=== PATIENT | female | born 1980 | race Caucasian/White ===

== ENCOUNTER 2016-07-07 08:19 | Emergency (ER) | payer OTHER ==
[2016-07-07 08:31] VITALS: BP 125/74
--- NOTE | 2016-07-07 09:07 | UC ---
Lower Extremity/Ankle HPI - HPI Summary HPI Summary: right lateral foot pain since yesterday. no known trauma or twisting. no redness. no dm. - History of Current Complaint Chief Complaint: UCLowerExtremity Stated Complaint: RIGHT FOOT PAIN Time Seen by Provider: 07/07/16 09:00 Hx Obtained From: Patient Hx Last Menstrual Period: 06/28/16 Onset/Duration: Gradual Onset, Lasting Days Severity Initially: Mild Severity Currently: Moderate Aggravating Factor(s): Standing, Ambulation Alleviating Factor(s): Rest Able to Bear Weight: Yes - Risk Factors Gout Risk Factors: Negative DVT Risk Factors: Negative - Allergies/Home Medications Allergies/Adverse Reactions: Allergies Allergy/AdvReac Type Severity Reaction Status Date / Time Penicillins Allergy Intermediate Hives Verified 07/07/16 08:31 PMH/Surg Hx/FS Hx/Imm Hx Previously Healthy: Yes - Surgical History Surgical History: Yes Surgery Procedure, Year, and Place: x 1 - Family History Known Family History: Positive: Hypertension - Social History Alcohol Use: Occasionally Substance Use Type: None Smoking Status (MU): Never Smoked Tobacco Review of Systems All Other Systems Reviewed And Are Negative: Yes Physical Exam Triage Information Reviewed: Yes Appearance: Well-Appearing, Well-Nourished Vital Signs: Initial Vital Signs Temp 98.4 F 07/07/16 08:26 Pulse 58 07/07/16 08:26 Resp 16 07/07/16 08:26 BP 125/74 07/07/16 08:26 Pulse Ox 100 07/07/16 08:26 Vital Signs Reviewed: Yes Eye Exam: Normal ENT Exam: Normal Neck exam: Normal Respiratory Exam: Normal Cardiovascular Exam: Normal Abdominal Exam: Normal Musculoskeletal Exam: Other - right lateral foot tenderness with forced abduction of the ankle. there is point tenderness of the 5th metatarsal head. no ankel or heel tenderness. Psychological Exam: Normal Skin Exam: Normal Lower Extremity Course/Dx - Course Course Of Treatment: there is tenderness along the 5th metatarsal and the foot/ ankle abductor tendon. no suggestion or reason for rupture. there is calcification on x ray of this area which may or may not be clinically significant. she agrees to f/u with orthopedics and for supportive care. - Differential Dx/Diagnosis Differential Diagnosis/HQI/PQRI: Arthritis, Tendonitis, Tenosynovitis Provider Diagnoses: right foot pain Discharge - Discharge Plan Condition: Stable Disposition: HOME Patient Education Materials: Foot Sprain (ED), Arthralgia (ED) Referrals: Sun MAURER,Rita Cruz [Primary Care Provider] - Tani Fuentes MD [Medical Doctor] -
[2016-07-07] MEDS ORDERED: Ibuprofen TAB* 600 MG PO ONE (09:14)
--- NOTE | 2016-07-07 09:42 | RAD ---
INDICATION: Atraumatic fifth metatarsal pain. TECHNIQUE: 3 views of the right foot were obtained. FINDINGS: The bones are in normal alignment. No fracture is seen. Joint spaces appear maintained. IMPRESSION: NO EVIDENCE FOR FRACTURE.
== END 2016-07-07 09:38 | disposition home or self-care (01) ==
LOC: UCCORT 08:19
DX: M79.671 Pain in right foot (principal)
CPT/HCPCS: 99212; A9270-GY; G0463

== ENCOUNTER 2017-11-20 08:05 | Emergency (ER) | payer OTHER ==
--- OUTSIDE RECORDS SUMMARY | 2017-11-20 08:16 | XMS REPORT ---
:1980 External Reference #:[id number] Organization [facility] Address [address] [address] Phone [phone] Care Team Providers Name Role Phone Jareth Garsia MD Care Team Information Business Services Intern Unavailable Payers Type Date Identification Numbers Payment Provider Subscriber Commercial Policy Number: [id number] Lifetime Benefit SLNS Verito Leggett PayID: [id number] [address] [address] [place] [address] Medigap Part B Effective: 2003 Policy Number: [id number] Ebs [employer] Verito Leggett Expires: 2014 Group Number: [place] [address] PayID: [place] [address] Medigap Part B Expires: 2003 Policy Number: BCBS Commercial Violet Leggett [id number] Group Number: [id number] [address] [address] Group Name: [place] [phone] PayID: [id number] Problems Date Description Provider 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 Gastrointestine Onset: 08/16/2002 von Willebrand disorder Jareth Garsia MD Active Social History Type Date Description Comments Smoking Patient has never smoked Allergies, Adverse Reactions, Alerts Date Description Reaction Status Severity Comments 02/20/2001 NKDA active Medications Medication Date Status Form Strength Qnty SIG Indications Ordering Provider Lexapro 06/18/ Active Tablets 10mg 30tabs 1 PO qd Deisi Garsia MD OCP 09/29/ Active 0units Aleks Garsia MD Fluconazole 01/10/ Hx Tablets 150mg 1tabs one tab by Sun, 2018 - mouth times Jareth, 02/17/ one day 2018 Amoxicillin/Cla 02/08/ Hx Tablets 875-125mg 20tabs 1 by mouth J01.90 tayla Garsiaanate 2018 - twice a day Jareth, Potassium 02/18/ with food 2017 Ciprofloxacin 02/08/ Hx Solution 0.3% 2.500m one drop in H10.89 Carljuma, HCL 2018 - l each eye 4 Jareth, 02/18/ times a day 2017 Ciprofloxacin 02/22/ Hx Solution 0.3% 2.500m one drop in H10.9 Sun , HCL 2016 - l each eye 4 Jareth, 03/01/ times a day 2016 Trimethoprim 02/17/ Hx Solution 64652-9.1U 10ml one drop in H10.9 Sun Sulfate/Polymyx 2017 - nit/ML-% lt eye 3 Jareth in B Sulfate 02/27/ times a day 2016 Doxycycline 03/05/ Hx Capsules 100mg 20caps 1 by mouth 466.0 Sun Hyclate 2014 - twice a day Jareth, 03/15/ with food 2014 Benzonatate 03/05/ Hx Capsules 200mg 20caps 1 by mouth Sun 2014 - twice a day Jareth, 03/15/ as needed 2014 cough Naproxen 12/02/ Hx Tablets 500mg 30tabs 1 po bid 726.10 Sun 2010 - prn with Jareth, 12/17/ food 2010 Scopalamine 09/10/ Hx 2units apply 1 q 3 Nida Garsia 2010 - days behind Rita 09/11/ first ERASTO esteban 2010 one 1 hr before boarding ship Cipro 05/14/ Hx Tablets 250mg 10tabs 1 po bid 599.0 Sun 2010 - Rita 05/15/ 2010 Pyridium 05/14/ Hx Tablets 200mg 10tabs 1 tid prn 599.0 Sun 2010 - bladder Rita, 05/15/ pain 2010 Cipro 07/08/ Hx Tablets 250mg 10tabs 1 po bid 599.0 Sun 2009 - Rita 07/09/ 2009 Pyridium 07/08/ Hx Tablets 200mg 10tabs 1 tid prn 599.0 Sun, 2009 - bladder Rita, 07/09/ pain MD 2009 Ciprofloxacin 04/09/ Hx Tablets 250mg 6tabs 1 po bid 599.0 Sun, HCL 2009 - Jareth, 04/12/ MD 2009 Cipro 05/14/ Hx Tablets 250mg 10tabs 1 po bid 599.0 Sun, 2008 - Rita, MD 2008 Pyridium 05/14/ Hx Tablets 200mg 10tabs 1 tid prn 599.0 Sun, 2008 - bladder Rita, 05/15/ pain MD 2008 Pyridium 08/07/ Hx Tablets 200mg 10tabs 1 tid prn 599.0 Sun, 2007 - bladder Rita, 08/08/ pain 2007 Cipro 08/07/ Hx Tablets 250mg 10tabs 1 po bid 599.0 Sun, 2008 - Rita, MD 2007 Polytrim 08/06/ Hx Solution 5cc 2 ggts each 372.30 Sun, 2008 - RT qid Jareth, 2007 Cipro 07/10/ Hx Tablets 250mg 6tabs 1 po bid 595.0 Sun, 2008 - Jareth, 2008 Naprosyn 04/23/ Hx Tablets 500mg 60tabs 1 po bid 465.9 Sun, 2008 - with food Rita, 04/26/ prn pain 2007 Amoxicillin 04/23/ Hx Tablets 875mg 20tabs 1 po bid 465.9 Sun, 2008 - Rita, 2008 Citalopram 04/19/ Hx Tablets 20mg 30tabs 1 po qd 306.4 Sun Hydrobromide 2008 - Rita, 08/19/ 2008 Cipro 12/22/ Hx Tablets 250mg 10tabs 1 po bid 599.0 Sun, 2006 - Rita, 2007 Duricef 09/05/ Hx Capsules 500mg 20caps 1 PO bid, 692.9 Sun, 2007 - Take Rita, 04/19/ Activia 2007 Yogurt Triamcinolone 09/05/ Hx Cream 0.5% 15GMS Rub In 692.9 Carlberg, Acetonide 2007 - Sparingly Rita, 09/06/ bid 2006 Paxil CR 08/17/ Hx Tablets 25mg 90tabs 1 po qd 306.4 Sun, 2005 - Rita, 2008 Valium 08/17/ Hx Tablets 5mg 10tabs 994.6 Sun, 2005 - Rita, 2008 Paxil 02/03/ Hx Tablets 20mg 30tabs 1 po qd 306.4 Sun, 2004 - Jareth, 2005 Tobrex 10/30/ Hx Solution 0.3% 1 gtts Sun 2004 - affected Rita, 10/31/ eye qid 2004 until clear Tylenol 10/29/ Hx Tablets 500mg 180tab take 2 up Sun 2004 - s to 4 A day Rita 04/19/ 2007 Work Note Hx Na Na was seen in 462 Sun, 2004 - office for Rita, 10/30/ likely 2004 mono- likely will be out until tuesday oct4 Naprosyn 10/26/ Hx Tablets 500mg 30tabs 1 po bid 462 Sun, 2004 - with food Rita, 10/27/ prn slime MAURER 2004 Augmentin 10/26/ Hx Tablets 875mg;125 20tabs 1 po bid 462 Sun, 2004 - mg Rita 11/04/ 2004 Lortab 10/26/ Hx Tablets 5mg;500 mg 30tabs 1-2 po q4-6 462 Sun 2004 - hours prn Rita 10/27/ pain 2004 Polytrim 05/13/ Hx Solution 1mg;10,000 5cc 2 Drops In 372.30 Sun 2004 - U/ML RT Eye tid Jareth 05/23/ 2004 Naprosyn 02/23/ Hx Tablets 500mg 30tabs 1 po bid 465.9 Sun 2004 - with food Rita, 02/26/ prn slime MAURER 2004 Tylenol 02/23/ Hx Tablets 300mg;30 20tabs 1-2 q4-6 465.9 Sun Codeine #3 2005 - mg hours prn Rita 02/24/ with small 2004 snack Paxil 02/23/ Hx Tablets 10mg 90tabs fill prn 1 306.4 Sun, 2005 - po qhs Rita, 02/03/ 2005 Tigan 02/15/ Hx Box 200mg 2units 1 pr Q 6 H 008.8 Sun, Suppository 2002 - prn Rita, 02/23/ Vommitting 2002 Keflex 01/02/ Hx 500mg 30unit One tid 684 Sun 2001 - s Jareth, 2001 Paxil 02/20/ Hx Capsules 20mg 90caps fill prn Sun, 2001 - one qd Jareth, 02/23/ 2004 Immunizations CPT Code Status Date Vaccine Lot # [id number] Given 01/20/2012 Afluria Or Fluvirin Flu Vac Intramuscular Vital Signs Date Vital Result Comment 02/08/2017 BP Systolic 116 mmHg BP Diastolic 82 mmHg Height 63.5 inches 5'3.50" 02/23/2016 BP Systolic 118 mmHg BP Diastolic 78 mmHg Height 63.5 inches 5'3.50" 02/18/2016 Heart Rate 65 /min BP Systolic 116 mmHg BP Diastolic 82 mmHg Height 63.5 inches 5'3.50" 03/05/2014 Weight 183.00 lb BP Systolic 112 mmHg BP Diastolic 78 mmHg Height 63.5 inches 5'3.50" BMI (Body Mass Index) 31.9 kg/m2 12/02/2010 Weight 187.00 lb BP Systolic 122 mmHg BP Diastolic 82 mmHg Height 63.5 inches 5'3.50" BMI (Body Mass Index) 32.6 kg/m2 05/14/2010 Urine Dipstick - Blood 1+ Neg Nitrites Urine Dipstick - Protein NEGATIVE Urine Dipstick - Glucose NEGATIVE 2+Leukocytes 07/08/2009 Urine Dipstick - Blood NEGATIVE Neg Nitrites Urine Dipstick - Protein NEGATIVE Urine Dipstick - Glucose NEGATIVE Trace Of Leukocytes 04/09/2009 Urine Dipstick - Blood NEGATIVE 1+ Leukocytes, No Nitrite Urine Dipstick - Protein NEGATIVE Urine Dipstick - Glucose NEGATIVE 05/14/2008 Urine Dipstick - Blood TRACE Non Hemolized Urine Dipstick - Protein NEGATIVE Neg Leukocytes Urine Dipstick - Glucose NEGATIVE Neg Nitrites 08/08/2007 Height 63.5 inches 5'3.50" Urine Dipstick - Blood 3+ Positive Nitrites Urine Dipstick - Protein 3+ 2+Leukocytes Urine Dipstick - Glucose NEGATIVE 08/04/2007 Body Temperature 98.6 F BP Systolic 104 mmHg BP Diastolic 70 mmHg Height 63.5 inches 5'3.50" 07/11/2007 Height 63.5 inches 5'3.50" Urine Dipstick - Blood NEGATIVE Trace To 1+ Leukocytes, No Nitrite Urine Dipstick - Protein NEGATIVE Urine Dipstick - Glucose NEGATIVE 04/24/2007 Body Temperature 100.4 F Height 63.5 inches 5'3.50" 08/17/2005 BP Systolic 130 mmHg BP Diastolic 70 mmHg Height 63.5 inches 5'3.50" 10/29/2004 Body Temperature 97.7 F Height 63.5 inches 5'3.50" 10/26/2004 Body Temperature 101.2 F Height 63.5 inches 5'3.50" 02/24/2004 Body Temperature 99.2 F Height 63.5 inches 5'3.50" 09/30/2003 Weight 163.00 lb Heart Rate 64 /min BP Systolic 112 mmHg BP Diastolic 70 mmHg Height 63.5 inches 5'3.50" BMI (Body Mass Index) 28.4 kg/m2 Urine Dipstick - Blood NEGATIVE Neg Nitrites Urine Dipstick - Protein NEGATIVE Neg Leukcoytes Urine Dipstick - Glucose NEGATIVE 06/14/2002 Body Temperature 98.6 F BP Systolic 112 mmHg LG. Cuff BP Diastolic 60 mmHg LG. Cuff 02/15/2002 Body Temperature 100.1 F 01/02/2002 Body Temperature 98.0 F BP Systolic 110 mmHg BP Diastolic 80 mmHg 08/15/2001 Weight 150.00 lb BP Systolic 110 mmHg BP Diastolic 70 mmHg Height 63 inches 5'3" BMI (Body Mass Index) 26.6 kg/m2 Urine Dipstick - Blood NEGATIVE Urine Dipstick - Protein 1+ Urine Dipstick - Glucose NEGATIVE Results Test Date Test Result H/L Range Note Laboratory test 10/30/2009 Vitamin D, 25 39 ng/mL 31-100 1 finding Hydroxy Laboratory test 04/09/2009 Urine Culture NO GROWTH 2 finding Laboratory test 05/14/2008 Urine Culture >100,000 CFU/ML 3 finding <SEE NOTE> Preliminary Ur. Culture Result GRAM NEGATIVE RO <SEE NOTE> 4 Gram Negative Sensitivity 05/14/2008 Ampicillin (Am) SENSITIVE Ampicillin/Sulbactam (Carlos Eduardo) SENSITIVE Cefazolin (CZ) SENSITIVE Ceftriaxone (Beater Engineer SENSITIVE Ciprofloxacin (Cip) SENSITIVE Nitrofurantoin (FT) SENSITIVE Trimethoprim/Sulfamethoxazole (SXT) SENSITIVE Laboratory test 08/04/2007 1 Strep Screen NEGATIVE Negative finding (In-House) Laboratory test 07/11/2007 Urine Culture >100,000 CFU/ML 5, 6 finding <SEE NOTE> Preliminary Ur. Culture Result GRAM POSITIVE CO <SEE NOTE> 5, 7 Gram Positive Susceptibility 07/11/2007 Amoxicillin/Clavulanic Acid DELETED 5 Ampicillin DELETED 5 Cephalothin DELETED 5 Ciprofloxacin DELETED 5 Nitrofurantoin DELETED 5 Norfloxacin DELETED 5 Oxacillin DELETED 5 Penicillin DELETED 5 Tetracycline DELETED 5 Trimethoprim/Sulfa DELETED 5 Vancomycin DELETED 5 Laboratory test 04/24/2007 1 Strep Screen POSITIVE Negative finding (In-House) Laboratory test 04/20/2007 TSH 0.71 uIU/ml 0.34-5.60 finding Laboratory test 12/22/2006 Urine Culture >100,000 CFU/ML 8 finding <SEE NOTE> Preliminary Ur. Culture Result GRAM NEGATIVE RO <SEE NOTE> 9 Gram Negative Sensitivity 12/22/2006 Amoxicillin/Clavulanic Acid SENSITIVE Ampicillin SENSITIVE Cefotaxime SENSITIVE Ceftriaxone SENSITIVE Cephalothin SENSITIVE Ciprofloxacin SENSITIVE Nitrofurantoin SENSITIVE Tetracycline SENSITIVE Trimethoprim/Sulfa SENSITIVE CMP 02/03/2005 Sodium 142 mmol/L 135-144 Potassium 4.5 mmol/L 3.6-5.2 Chloride 106 mmol/L 97-110 Carbon Dioxide 29 mmol/L 22-32 Glucose 100 mg/dL 70-105 BUN 7 mg/dL 6-22 Creatinine 0.7 mg/dL 0.5-1.3 BUN/CR 10 Ratio Low 12.0-20.0 Calcium 9.3 mg/dL 8.6-10.2 Total Protein 6.3 g/dL 5.8-7.8 Albumin 3.8 g/dL 3.5-4.8 Globulin 2.5 g/dL 2.0-3.5 A/G Ratio 1.5 Ratio 1.0-2.2 Total Bilirubin 0.4 mg/dL 0.3-1.2 Alkaline Phosphatase 56 U/L 24-140 Alt 17 U/L 4-45 Ast 16 U/L 12-40 Anion Gap 12 mmol/L 8-16 GFR White Male 148 GFR White Female 110 GFR Black Male 179 GFR Black Female 133 GFR Guidelines 0 10 Hepatic Liver Panel 10/29/2004 Total Protein 6.6 g/dL 6.1-7.9 Albumin 3.5 g/dL 3.5-4.8 Total Bilirubin 0.4 mg/dL 0.3-1.2 Direct Bilirubin 0.0 mg/dL 0.0-0.5 Ast 20 U/L 15-41 Alt 17 U/L 14-54 Alkaline Phosphatase 94 U/L 24-108 CBC 10/29/2004 WBC 8.0 K/ul 4.1-10.9 RBC 4.73 M/ul 4.20-6.30 Hemoglobin 13.9 GM/dl 12.5-15.0 Hematocrit 42.0 % 36.0-47.0 MCV 88.7 FL 80.0-97.0 MCH 29.4 pg 26.0-32.0 MCHC 33.1 g/dL 31.0-36.0 RDW 12.0 % 11.5-14.5 Platelet Count 342 K/ul 140-440 Neutrophils 73.2 % High 50-70 Lymphocytes 17.9 % Low 20-44 Monocytes 7.0 % 2-9 Eosinophil 1.5 % 0-4 Basophil 0.4 % 0-2 Absolute Neutrophils 5.9 K/ul 2.05-7.63 Absolute Lymphocytes 1.4 K/ul 0.8-4.8 Absolute Monocytes 0.6 K/ul 0.1-1.0 Absolute Eosinophils 0.1 K/ul 0.1-0.5 Absolute Basophils 0.0 K/ul Low 0.1-0.3 Laboratory test finding 10/29/2004 C Difficle Toxin A NEGATIVE Laboratory test finding 10/29/2004 Monospot NEGATIVE Jaylen Jacobsen Acute Antibody 10/27/2004 Ebv Ab Vca, IgM 26 AU High 0-19 11 Panel-Centx Ebv Early Antigen Ab, IgG Negative Negative 12 Ebv Ab Vca, IgG 82 AU High 0-19 13 Ebv Nuclear Antigen Ab, IgG 74 AU High 0-19 14 Laboratory test finding 10/26/2004 1 Strep Screen (In-House) NEGATIVE Negative Laboratory test finding 10/26/2004 Ast 22 U/L 15-41 CBC 10/26/2004 WBC 6.9 K/ul 4.1-10.9 RBC 4.78 M/ul 4.20-6.30 Hemoglobin 13.9 GM/dl 12.5-15.0 Hematocrit 42.6 % 36.0-47.0 MCV 89.2 FL 80.0-97.0 MCH 29.2 pg 26.0-32.0 MCHC 32.7 g/dL 31.0-36.0 RDW 12.1 % 11.5-14.5 Platelet Count 354 K/ul 140-440 Neutrophils 76.0 % High 50-70 Lymphocytes 14.2 % Low 20-44 Monocytes 9.1 % High 2-9 Eosinophil 0.3 % 0-4 Basophil 0.4 % 0-2 Absolute Neutrophils 5.3 K/ul 2.05-7.63 Absolute Lymphocytes 1.0 K/ul 0.8-4.8 Absolute Monocytes 0.6 K/ul 0.1-1.0 Absolute Eosinophils 0.0 K/ul Low 0.1-0.5 Absolute Basophils 0.0 K/ul Low 0.1-0.3 Laboratory test finding 10/26/2004 Monospot NEGATIVE CBC 02/24/2004 WBC 4.6 K/ul 4.1-10.9 RBC 4.57 M/ul 4.20-6.30 Hemoglobin 13.6 GM/dl 12.5-15.0 Hematocrit 40.3 % 37.0-51.0 MCV 88.3 FL 80.0-97.0 MCH 29.8 pg 26.0-32.0 MCHC 33.8 g/dL 31.0-36.0 RDW 12.5 % 11.5-14.5 Platelet Count 290 K/ul 140-440 Neutrophils 64.4 % 50-70 Lymphocytes 22.3 % 20-44 Monocytes 10.4 % High 2-9 Eosinophil 2.4 % 0-4 Basophil 0.5 % 0-2 Absolute Neutrophils 3.0 K/ul 2.05-7.63 Absolute Lymphocytes 1.0 K/ul 0.8-4.8 Absolute Monocytes 0.5 K/ul 0.1-1.0 Absolute Eosinophils 0.1 K/ul 0.1-0.5 Absolute Basophils 0.0 K/ul Low 0.1-0.3 Laboratory test finding 02/24/2004 TSH 0.96 uIU/ml 0.50-6.00 CMP 02/24/2004 Sodium 141 mmol/L 135-145 Potassium 4.3 mmol/L 3.4-5.3 Chloride 108 mmol/L 98-111 Carbon Dioxide 28 mmol/L 22-33 Glucose 94 mg/dL 70-105 BUN 9 mg/dL 6-26 Creatinine 0.8 mg/dL 0.5-1.5 BUN/CR 11 Ratio Low 12.0-20.0 Calcium 8.7 mg/dL 8.6-10.3 Total Protein 6.9 g/dL 6.2-8.3 Albumin 3.4 g/dL Low 3.5-5.0 Globulin 3.5 g/dL 2.7-4.3 A/G Ratio 1.0 Ratio 1.0-2.2 Total Bilirubin 0.3 mg/dL 0.1-1.3 Ast 18 U/L 8-42 Alt 18 U/L 3-42 Alkaline Phosphatase 55 U/L 24-108 Anion Gap 9 mmol/L Low 10-20 Laboratory test finding 02/24/2004 Monospot NEGATIVE 1 FASTING 12 HOUR 2 This sample is drawn by: BB 3 >100,000 CFU/ML ESCHERICHIA COLI 4 GRAM NEGATIVE SINDY ISOLATED, ID & SENSITIVITY TO FOLLOW 5 Test deleted. Reason: * 6 >100,000 CFU/ML MIXED SKIN ORGANISMS CONSISTENT WITH CONTAMINATION. REQUEST NEW SPECIMEN IF INDICATED. 7 GRAM POSITIVE COCCI (PRESUMPTIVE STAPH SPECIES), ID & SENSITIVITY TO FOLLOW 8 >100,000 CFU/ML ESCHERICHIA COLI 9 GRAM NEGATIVE SINDY ISOLATED, ID & SENSITIVITY TO FOLLOW 10 Normal Function or Mild Renal Disease, if clinically at risk: >/=60 mL/min Moderately decreased: 30-59 Severely decreased: 15-29 Renal Failure: <15 Glomerular Filtration Rate (GFR) is estimated based on the MDRD equation, which assumes a steady state for creatinine as recommended by the National Kidney Disease Education Program in conjunction with the National Institutes of Health and the National Kidney Foundation. Clinical conditions in which it may be necessary to measure GFR by using clearance methods include extremes of age and body size, severe malnutrition or obesity, diseases of skeletal muscle, paraplegia or quadriplegia, vegetarian diet, rapidly changing kidney function, and calculation of the dose of potentially toxic drugs that are excreted by the kidneys. 11 Negative <20 Positive >19 12 Positive results suggest recent or chronic-active infection. Anti-EA becomes undetectable weeks to months after onset. 13 Negative <20 Positive >19 14 Negative <20 Positive >19 Procedures Date CPT Code Description Status 01/30/2004 88319 Doppler Color Flow Velocity Mapping Completed 01/30/2004 38154 Doppler Echocardiography Complete Completed 01/30/2004 84357 ECHO Complete W/O Spectral Or Color Doppler Completed Encounters Type Date Location Provider CPT E/M Dx Office Visit 02/08/2017 1:40[place] [address] J01.90 H10.89 Office Visit 02/23/2016 3:10p [place] [address] H10.9 Office Visit 02/18/2016 1:20p [place] [address] H10.9 Office Visit 03/05/2014 3:10[place] [address] 466.0 Office Visit 12/02/2010 1:40[place] [address] 726.10 Office Visit 05/14/2010 11:30[place] [address] 599.0 Office Visit 10/30/2009 3:40p [place] [address] 268.9 306.4 Office Visit 07/08/2009 11:10a [place] [address] 599.0 Office Visit 04/09/2009 10:50a [place] [address] 599.0 Office Visit 05/14/2008 11:40[place] [address] 599.0 Office Visit 08/08/2007 9:00a [place] [address] 599.0 Office Visit 08/07/2007 11:20[place] [address] 372.30 Office Visit 08/04/2007 11:40a [place] [address] 465.9 Office Visit 07/11/2007 2:50p [place] [address] 595.0 Office Visit 06/05/2007 1:20p [place] [address] 787.02 Office Visit 04/24/2007 2:10p [place] [address] 465.9 Office Visit 04/20/2007 3:20p [place] [address] 783.1 306.4 Office Visit 12/22/2006 1:10p [place] [address] 599.0 Office Visit 09/05/2006 1:30p [place] [address] 692.9 Office Visit 08/17/2005 1:00p [place] [address] 994.6 Office Visit 02/03/2005 11:20[place] [address] 535.50 Office Visit 10/29/2004 2:50p [place] [address] 462 787.91 Office Visit 10/26/2004 3:10p [place] [address] 462 Office Visit 05/13/2004 1:50p [place] [address] 372.30 Office Visit 02/24/2004 9:20[place] [address] 780.79 465.9 306.4 Office Visit 12/19/2003 10:30[place] [address] Office Visit 09/30/2003 9:30a [place] [address] V70.0 306.4 286.4 785.2 Office Visit 04/30/2003 11:20[place] [address] 286.4 455.0 386.30 Office Visit 06/14/2002 3:40p [place] [address] 306.4 Office Visit 02/15/2002 4:40p [place] [address] 008.8 Office Visit 01/02/2002 1:40p [place] [address] 684 Office Visit 08/15/2001 2:30p [place] [address] 784.7 306.4 Office Visit 08/15/2000 2:50p [place] [address] Office Visit 07/05/2000 11:50a [place] [address] Plan of Care 10/21/2017 - Rita Garsia MDR21 Rash and other nonspecific skin eruptionNew Labs:Lyme Igm/Igg AB -RLComments:likely viral syndrome, unsure of agent that would cause headache and then rash will research, do labsR51 HeadacheNew Labs:CBC with Auto Diff-fcmgComprehensive Met Panel-FCMGParvo B19 Igm Igg AB-RLEbv Evaluation -RLComments:likely related to rash and prodrome for the rash
[2017-11-20 08:21] VITALS: BP 141/76
--- NOTE | 2017-11-20 08:34 | UC ---
Eye Complaint HPI - HPI Summary HPI Summary: L EYE IRRITATED YESTERDAY, R EYE RED WELL. TODAY BOTH HAVE DRAINAGE AND CRUSTING. WEARS CONTACTS BUT TOOK THEM OUT AND WILL THROW THEM AWAY. NO PAIN OR VISUAL LOSS. - History of Current Complaint Chief Complaint: UCEye Stated Complaint: BILATERAL EYE COMPLAINT Time Seen by Provider: 11/20/17 08:10 Hx Obtained From: Patient Hx Last Menstrual Period: "a week or two ago" Onset/Duration: Gradual Onset Timing: Constant Pain Intensity: 0 Aggravating Factor(s): Nothing Alleviating Factor(s): Nothing Associated Signs And Symptoms: Positive: Drainage (Purulent). Negative: Photophobia, Vision Impairment Bilateral, Fever, Swelling - Allergies/Home Medications Allergies/Adverse Reactions: Allergies Allergy/AdvReac Type Severity Reaction Status Date / Time Penicillins Allergy Intermediate Hives Verified 11/20/17 08:16 Home Medications: Home Medications Bcp 1 tab QPM 11/20/17 [History Confirmed 11/20/17] PMH/Surg Hx/FS Hx/Imm Hx Previously Healthy: Yes - Surgical History Surgical History: Yes Surgery Procedure, Year, and Place: x 1 - Family History Known Family History: Negative: Cardiac Disease, Hypertension, Diabetes - Social History Occupation: Employed Full-time Lives: With Family Alcohol Use: Occasionally Substance Use Type: None Smoking Status (MU): Never Smoked Tobacco Have You Smoked in the Last Year: No - Immunization History Vaccination Up to Date: Yes Review of Systems Constitutional: Negative Skin: Negative Eyes: Drainage, Eye Redness ENT: Nasal Discharge Respiratory: Negative Cardiovascular: Negative Gastrointestinal: Negative Genitourinary: Negative Motor: Negative Neurovascular: Negative Musculoskeletal: Negative Neurological: Negative Psychological: Negative Is Patient Immunocompromised?: No All Other Systems Reviewed And Are Negative: Yes Physical Exam Triage Information Reviewed: Yes Appearance: Well-Appearing Vital Signs: Initial Vital Signs Temp 97.9 F 11/20/17 08:17 Pulse 70 11/20/17 08:17 Resp 16 11/20/17 08:17 BP 141/76 11/20/17 08:17 Pulse Ox 100 11/20/17 08:17 Vital Signs Reviewed: Yes Eyes: Positive: Other: - No periorbital edema or erythema. No pre-or postauricular adenopathy. PERRL, EOMI. Conjunctiva injected bilaterally with crusting to both eyes. No foreign bodies. Intrachamber anterior chambers are clear. ENT: Positive: Pharynx normal, TMs normal. Negative: Nasal drainage Neck: Positive: Supple, Nontender, No Lymphadenopathy Respiratory: Positive: Lungs clear, Normal breath sounds Cardiovascular: Positive: RRR, No Murmur Abdomen Description: Positive: Nontender, No Organomegaly, Soft Bowel Sounds: Positive: Present Musculoskeletal: Positive: ROM Intact Neurological: Positive: Alert Psychological: Positive: Age Appropriate Behavior Skin Exam: Normal Skin: Negative: rashes Eye Complaint Course/Dx - Course Course Of Treatment: No concern for corneal ulcer. pt agrees to dispose of last contacts used and avoid use until cleared. - Differential Dx/Diagnosis Provider Diagnoses: Conjunctivitis Discharge - Sign-Out/Discharge Documenting (check all that apply): Patient Departure All imaging exams completed and their final reports reviewed: No Studies - Discharge Plan Condition: Stable Disposition: HOME Prescriptions: Ofloxacin 0.3% (Eye Drop) [Ocuflox OPTH 0.3% (Eye Drop)] 2 drop BOTH EYES Q4H 7 Days #1 btl Patient Education Materials: Conjunctivitis (ED) Referrals: Sun MAURER,Rita Cruz [Primary Care Provider] - 7 Days Additional Instructions: DISPOSE OF CURRENT CONTACTS. - Billing Disposition and Condition Condition: STABLE Disposition: Home
== END 2017-11-20 08:39 | disposition home or self-care (01) ==
LOC: UCCORT 08:05
DX: H10.9 Unspecified conjunctivitis (principal); Z88.0 Allergy status to penicillin
CPT/HCPCS: 99212; G0463

== ENCOUNTER 2017-12-11 13:45 | Emergency (ER) | payer OTHER ==
[2017-12-11 15:19] VITALS: BP 135/81
--- NOTE | 2017-12-11 15:32 | UC ---
Respiratory Complaint HPI - HPI Summary HPI Summary: Pt c/o gradual onset of nasal congestion that has now "settled into my chest" X 4 days. - History of Current Complaint Chief Complaint: UCGeneralIllness Stated Complaint: UPPER RESPITORY Time Seen by Provider: 12/11/17 15:28 Hx Obtained From: Patient Hx Last Menstrual Period: on BCP/no menses ?: No Onset/Duration: Gradual Onset, Lasting Days, Still Present Timing: Constant Severity Initially: Mild Severity Currently: Moderate Pain Intensity: 0 Character: Cough: Nonproductive Aggravating Factors: Exertion, Deep Breaths, Recumbent Position Alleviating Factors: Nothing Associated Signs And Symptoms: Positive: Wheezing, URI, Nasal Congestion - Risk Factors Pulmonary Embolism Risk Factors: Oral Contraceptives Cardiac Risk Factors: Negative Pseudomonas Risk Factors: Negative Tuberculosis Risk Factors: Negative - Allergies/Home Medications Allergies/Adverse Reactions: Allergies Allergy/AdvReac Type Severity Reaction Status Date / Time Penicillins Allergy Intermediate Hives Verified 12/11/17 15:19 PMH/Surg Hx/FS Hx/Imm Hx Previously Healthy: Yes - Surgical History Surgical History: Yes Surgery Procedure, Year, and Place: x 1 - Family History Known Family History: Negative: Cardiac Disease, Hypertension, Diabetes - Social History Occupation: Employed Full-time Lives: With Family Alcohol Use: Occasionally Substance Use Type: None Smoking Status (MU): Never Smoked Tobacco Have You Smoked in the Last Year: No - Immunization History Vaccination Up to Date: Yes Review of Systems Constitutional: Chills, Fatigue Skin: Negative Eyes: Negative ENT: Sinus Congestion Respiratory: Shortness Of Breath, Cough Cardiovascular: Negative Gastrointestinal: Negative Genitourinary: Negative Motor: Negative Neurovascular: Negative Musculoskeletal: Myalgia Neurological: Negative Psychological: Negative Is Patient Immunocompromised?: No All Other Systems Reviewed And Are Negative: Yes Physical Exam Triage Information Reviewed: Yes Appearance: Ill-Appearing Vital Signs: Initial Vital Signs Temp 98.5 F 12/11/17 15:15 Pulse 69 12/11/17 15:15 Resp 17 12/11/17 15:15 BP 135/81 12/11/17 15:15 Pulse Ox 100 12/11/17 15:15 Vital Signs Reviewed: Yes Eye Exam: Normal ENT: Positive: Nasal congestion Dental Exam: Normal Neck exam: Normal Respiratory Exam: Normal Cardiovascular Exam: Normal Musculoskeletal Exam: Normal Neurological Exam: Normal Psychological Exam: Normal Skin Exam: Normal UC Diagnostic Evaluation - Laboratory O2 Sat by Pulse Oximetry: 100 Respiratory Course/Dx - Differential Dx/Diagnosis Differential Diagnosis/HQI/PQRI: Bronchitis, Influenza Provider Diagnoses: bronchitis Discharge - Sign-Out/Discharge Documenting (check all that apply): Patient Departure All imaging exams completed and their final reports reviewed: No Studies - Discharge Plan Condition: Stable Disposition: HOME Prescriptions: Albuterol HFA INHALER* [Ventolin HFA Inhaler*] 1 puff INH Q6H PRN #1 mdi PRN Reason: Sob/Wheezing Azithromycin TAB* [Zithromax TAB (Z-CIARA) 250 mg #6 tabs] 2 tab PO .TODAY, THEN 1 DAILY #1 ciara Benzonatate CAP* [Tessalon 100 MG CAP*] 100 mg PO Q8H PRN #21 cap PRN Reason: Cough predniSONE TAB* [Deltasone 20 MG TAB*] 20 mg PO DAILY #4 tab Patient Education Materials: Acute Bronchitis (ED) Referrals: Sun MAURER,Rita Cruz [Primary Care Provider] - If Needed - Billing Disposition and Condition Condition: STABLE Disposition: Home
== END 2017-12-11 15:37 | disposition home or self-care (01) ==
LOC: UCCORT 13:45
DX: J40 Bronchitis, not specified as acute or chronic (principal); Z88.0 Allergy status to penicillin
CPT/HCPCS: 99212; G0463

== ENCOUNTER 2018-08-04 07:29 | Emergency (ER) | payer OTHER ==
[2018-08-04 07:44] VITALS: BP 113/87
[2018-08-04] MEDS ORDERED: Albuterol/Ipratropium NEB.SOL* Albuterol 2.5 MG/Ipratropium 0.5 MG 3 ML INH ONE (08:06)
--- NOTE | 2018-08-04 08:10 | ED ---
Respiratory - HPI Summary HPI Summary: 38 yr old female with the complaint of hoarse voice, sore throat, coughing, post nasal drip and tightness in chest with SOB. Onset of symptoms over the past three days. 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 She denies fever. - History of Current Complaint Chief Complaint: UCGeneralIllness Stated Complaint: COUGH,SOB Time Seen by Provider: 08/04/18 08:01 Pain Intensity: 0 - Allergy/Home Medications Allergies/Adverse Reactions: Allergies Allergy/AdvReac Type Severity Reaction Status Date / Time Penicillins Allergy Intermediate Hives Verified 08/04/18 07:41 PMH/Surg Hx/FS Hx/Imm Hx - Surgical History Surgery Procedure, Year, and Place: x 1 Infectious Disease History: No Infectious Disease History: Denies: Traveled Outside the [place] in Last 30 Days - Family History Known Family History: Positive: None Negative: Cardiac Disease, Hypertension, Diabetes - Social History Occupation: Employed Full-time Alcohol Use: Occasionally Substance Use Type: Reports: None Smoking Status (MU): Never Smoked Tobacco Have You Smoked in the Last Year: No Review of Systems Constitutional: Negative Positive: Sore Throat, Other - post nasal drip Positive: Shortness Of Breath, Cough All Other Systems Reviewed And Are Negative: Yes Physical Exam Triage Information Reviewed: Yes Vital Signs On Initial Exam: Initial Vitals Temp Pulse Resp BP Pulse Ox 98.4 F 63 16 113/87 100 08/04/18 07:42 08/04/18 07:42 08/04/18 07:42 08/04/18 07:42 08/04/18 07:42 Vital Signs Reviewed: Yes Appearance: Positive: Well-Appearing, No Pain Distress Skin: Positive: Warm, Skin Color Reflects Adequate Perfusion Head/Face: Positive: Normal Head/Face Inspection Eyes: Positive: EOMI ENT: Positive: Pharyngeal erythema, TMs normal, Hoarse voice. Negative: Muffled voice Neck: Positive: Nontender Respiratory/Lung Sounds: Positive: Decreased Breath Sounds Cardiovascular: Positive: RRR. Negative: Murmur Abdomen Description: Negative: Distended Musculoskeletal: Positive: Strength/ROM Intact. Negative: Edema Left, Edema Right Neurological: Positive: Sensory/Motor Intact, Alert, Oriented to Person Place, Time, CN Intact II-III Psychiatric: Positive: Normal - Scarbro Coma Scale Best Eye Response: 4 - Spontaneous Best Motor Response: 6 - Obeys Commands Best Verbal Response: 5 - Oriented Coma Scale Total: 15 Diagnostics - Vital Signs Vital Signs Temp Pulse Resp BP Pulse Ox 08/04/18 07:42 98.4 F 63 16 113/87 100 - Laboratory Lab Statement: Any lab studies that have been ordered have been reviewed, and results considered in the medical decision making process. Re-Evaluation - Re-Evaluation First Eval Re-Evaluation Time: 08:58 Change: Improved Disposition - Course Course Of Treatment: 38 yr old female with post nasal drip, yellow sputum and coughing. Better after nebs. Will Rx with Biaxin, pred, and albuterol - Diagnoses Provider Diagnoses: Acute bronchitis, Sinusitis Discharge - Sign-Out/Discharge Documenting (check all that apply): Patient Departure All imaging exams completed and their final reports reviewed: Yes - Discharge Plan Condition: Good Disposition: HOME Prescriptions: Albuterol HFA INHALER* [Ventolin HFA Inhaler*] 1 - 2 puff INH Q6H PRN #1 mdi PRN Reason: Cough Clarithromycin TAB* [Biaxin 500 MG TAB*] 500 mg PO BID #20 tab predniSONE TAB* [Deltasone 20 MG TAB*] 40 mg PO DAILY #8 tab Patient Education Materials: Sinusitis (ED), Acute Bronchitis (ED), Clarithromycin (By mouth) Referrals: Rita Garsia MD [Primary Care Provider] - 2 Days - Billing Disposition and Condition Condition: GOOD Disposition: Home
== END 2018-08-04 09:07 | disposition home or self-care (01) ==
LOC: UCCORT 07:29
DX: J20.9 Acute bronchitis, unspecified (principal); J32.9 Chronic sinusitis, unspecified; Z88.0 Allergy status to penicillin
CPT/HCPCS: 71046; 99212; A9270-GY; G0463